=== PATIENT | male | born 1955 | race Caucasian/White ===

== ENCOUNTER 2017-07-06 23:55 | Emergency (ER) | payer MEDICAID ==
[~2017-07-06 23:55] MED LIST: ALBU8.5H4 IH; CARI350T PO; CLON-527 PO; COMIN IH; IBUP-1984 PO; NORCO10T PO; OMEP-84 PO; REQUIP
== END 2017-07-07 00:46 | disposition left against medical advice (07) ==
LOC: ER 23:56
DX: J44.9 Chronic obstructive pulmonary disease, unspecified (principal); R06.02 Shortness of breath; Z53.21 Procedure and treatment not carried out due to patient leaving prior to being seen by health care provider

== ENCOUNTER 2018-07-16 02:23 | Emergency (ER) | payer MEDICAID ==
[~2018-07-16] VITALS: Ht 170.2 cm; Wt 86.3 kg
--- NOTE | 2018-07-16 02:36 | NUR ---
Patient comes to ER with reports of restless leg syndrome, he ran out of medication 3days ago and is in pain 03/10. I will continue to monitor.
[2018-07-16] MEDS ORDERED: ROPI4TAB3 PO (02:40)
[2018-07-16 02:55] VITALS: BP 132/86
== END 2018-07-16 02:58 | disposition home or self-care (01) ==
LOC: ER 02:23
DX: G25.81 Restless legs syndrome (principal); J44.9 Chronic obstructive pulmonary disease, unspecified; G89.29 Other chronic pain; F12.90 Cannabis use, unspecified, uncomplicated; Z76.0 Encounter for issue of repeat prescription; Z88.2 Allergy status to sulfonamides; Z79.899 Other long term (current) drug therapy
CPT/HCPCS: 99283

== ENCOUNTER 2019-07-17 14:47 | Emergency (ER) | payer MEDICAID ==
[~2019-07-17] VITALS: Ht 170.2 cm; Wt 84.1 kg
[~2019-07-17 14:47] MED LIST changes: +ROPI4TAB3 PO
[2019-07-17 14:51] VITALS: BP 135/76
[2019-07-17] MEDS ORDERED: predniSONE 20 mg tablet PO ONE (15:15)
[2019-07-17] MEDS ORDERED: ketorolac trometh inj. 60 MG/2 ML VIAL IM ONE (15:15)
[2019-07-17] MEDS ORDERED: diazepam 5mg tablet PO ONE (15:15)
[2019-07-17] MEDS ORDERED: CYCL-1 PO (15:16)
[2019-07-17] MEDS ORDERED: IBUP-1984 PO (15:16)
== END 2019-07-17 15:48 | disposition home or self-care (01) ==
LOC: ER 14:47
DX: M54.5 Low back pain (principal); J44.9 Chronic obstructive pulmonary disease, unspecified; G89.29 Other chronic pain; F12.90 Cannabis use, unspecified, uncomplicated; F10.99 Alcohol use, unspecified with unspecified alcohol-induced disorder; Z88.2 Allergy status to sulfonamides; Z98.890 Other specified postprocedural states; Z79.899 Other long term (current) drug therapy; Y90.9 Presence of alcohol in blood, level not specified
CPT/HCPCS: 96372; 99283; J1885; J7512